=== PATIENT | female | born 1985 | race Two or more races ===

== ENCOUNTER 2023-12-28 21:33 | Emergency (ER) | payer OTHER ==
[~2023-12-28] VITALS: Ht 162.6 cm; Wt 74.8 kg
[2023-12-28] MEDS ORDERED: TIROSINT88 MCG (21:58)
[2023-12-28] MEDS ORDERED: CLINDAMYCIN PHOSPHATE 150 MG/ML (600mg) IM STA (22:58)
[2023-12-28] MEDS ORDERED: KETOROLAC TROMETHAMINE 60 MG VIAL IM STA (22:59)
== END 2023-12-28 23:27 | disposition home or self-care (01) ==
LOC: ER 21:34
DX: L03.90 Cellulitis, unspecified (principal); Z88.4 Allergy status to anesthetic agent